=== PATIENT | female | born 1990 | race Caucasian/White ===

== ENCOUNTER 2020-10-31 18:33 | Emergency (ER) | payer OTHER ==
[~2020-10-31] VITALS: Ht 162.6 cm; Wt 58.2 kg
[2020-10-31 18:35] VITALS: BP 135/87
[2020-10-31] MEDS ORDERED: LIDODERM 5% PATCH TD ONE ×2 (20:00→20:02)
[2020-10-31] MEDS ORDERED: IBUPROFEN 600 MG TABLET PO ONE (20:00)
[2020-10-31] MEDS ORDERED: IBUPROFEN 600 MG TABLET ONE (20:02)
== END 2020-10-31 20:27 | disposition home or self-care (01) ==
LOC: ED 19:03
DX: S16.1XXA Strain of muscle, fascia and tendon at neck level, initial encounter (principal); S09.90XA Unspecified injury of head, initial encounter; V49.49XA Driver injured in collision with other motor vehicles in traffic accident, initial encounter; Y93.89 Activity, other specified; Y92.830 Public park as the place of occurrence of the external cause; Y99.8 Other external cause status
CPT/HCPCS: 99283

== ENCOUNTER 2020-11-21 17:27 | Emergency (ER) | payer OTHER ==
[~2020-11-21] VITALS: Ht 162.6 cm; Wt 58.5 kg
[2020-11-21 17:32] VITALS: BP 134/84
--- NOTE | 2020-11-21 19:33 | NUR ---
ALL RESULTS ARE BACK AT THIS TIME.
== END 2020-11-21 20:08 | disposition home or self-care (01) ==
LOC: ED 19:57
DX: S16.1XXA Strain of muscle, fascia and tendon at neck level, initial encounter (principal); M54.6 Pain in thoracic spine; Z72.9 Problem related to lifestyle, unspecified; X58.XXXA Exposure to other specified factors, initial encounter; Y93.89 Activity, other specified; Y92.89 Other specified places as the place of occurrence of the external cause; Y99.8 Other external cause status
CPT/HCPCS: 72050; 72072; 99284